=== PATIENT | female | born 1990 | race Caucasian/White ===

== ENCOUNTER 2020-12-20 18:18 | Emergency (ER) | payer OTHER ==
[2020-12-20 18:47] LABS: Bilirubin Negative (Negative); Blood, Urine Large (Negative); Clarity Clear (Clear); Glucose, Urine (Dipstick) Negative (Negative); Ketone, Urine Negative (Negative); Leukocyte Negative (Negative); Nitrite Negative (Negative); Protein, Urine (Dipstick) Negative (Neg-Trace); Urobilinogen 0.2 mg/dL (Less than 2)
[2020-12-20 18:54] LABS: Pregnancy Test - Urine (BHCG) Negative (Negative); Pregu Control Background? CLEAR/WHITE (CLR/WHITE); Pregu Control Bar Appear? YES (CONTROL BAR)
[2020-12-20 18:57] LABS: Squamous Epithelial 0-3 HPF (0-3)
[2020-12-20] MEDS ORDERED: Ondansetron PF 4 MG/2 ML Vial ONE (19:01)
[2020-12-20] MEDS ORDERED: Ketorolac Tromethamine 30 MG/ML VIAL ONE (19:05)
[2020-12-20 19:10] LABS: #Basophils 0.1 thou/uL (0.0-0.2); #Eosinphils 0.2 thou/uL (0.0-0.7); #Monocytes 0.6 thou/uL (0.11-0.59); #Neutrophils 5.6 thou/uL (1.40-6.50); %Basophils 1.1 % (0.0-1.0); %Eosinophils 1.8 % (0.0-10.0); %Lymphocytes 38.1 % (21.0-51.0); %Monocytes 5.5 % (0.0-10.0); %Neutrophils 53.5 % (42.0-75.0); Hemoglobin 13.7 g/dL (12.0-16.0); Mean Corpuscular HGB CONC 34.3 g/dL (32.0-36.0); Mean Corpuscular Hemoglobin 32.3 pg (27.0-31.0); Mean Platelet Volume 7.7 fL (7.4-10.4); Platelet Count 294 thou/uL (130-400); RBC Distribution Width 12.9 % (11.5-14.5); Red Blood Cell (RBC) Count 4.25 mill/uL (4.20-5.40); White Blood Cell (WBC) Count 10.5 thou/uL (4.8-10.8)
[2020-12-20 19:24] LABS: ALT (SGPT) 23 U/L (8-55); AST (SGOT) 17 U/L (5-34); Albumin 4.2 g/dL (3.5-5.0); Alkaline Phosphatase 79 U/L (40-110); Anion Gap 15 mmol/L (10-20); BUN (Urea Nitrogen) 6 mg/dL (7.0-18.7); Bilirubin, Total 0.2 mg/dL (0.2-1.2); Calc. Creatinine Clearance 0 mL/min (70-130); Carbon Dioxide 21 mmol/L (22-29); Chloride 105 mmol/L (98-107); Globulin 3.2 g/dL (2.4-3.5); Glucose 88 mg/dL (70-105); Lipase 14 U/L (8-78); Potassium 4.1 mmol/L (3.5-5.1); Protein, Total 7.4 g/dL (6.0-8.3); Sodium 137 mmol/L (136-145)
--- NOTE | 2020-12-20 19:53 | CT ---
EXAM: ABDOMEN AND PELVIC CT SCAN WITHOUT IV CONTRAST: 12/20/20 HISTORY: Left flank pain radiating to lower abdomen. FINDINGS: 0.3 cm diameter circumscribed subpleural nodule in the right lower lobe. Given its size and appearanc e this nodule should not need any short term follow-up. The liver, gallbladder, pancreas, spleen, adrenal glands are unremarkable. No renal calculus or acute obstruction. Normal appearing appendix. No evidence for large or small bowel obstruction. Lumbar disc disease particularly at L4-L5 and L5-S1. The right ovary appears to be somewhat enlarged measuring 3.3 x 4.5 cm in size. The let ovary is norm al in size. Both ovaries containing circumscribed punctate calcific focus. Uterus appears unremarkabl e. IMPRESSION: No significant acute process in the abdomen or pelvis. No renal calculus or acute obstruction. No solid or cystic renal mass. Evidence for probable enlarged right ovary. Nonemergent follow-up pelvic ultrasound with transabdominal and transvaginal imaging is suggested fo r further assessment. 0.3 cm diameter circumscribed nodule in the right lower lobe. POS: RRE
== END 2020-12-20 20:36 | disposition short-term general hospital (02) ==
LOC: NAV ERS 18:18
DX: N83.8 Other noninflammatory disorders of ovary, fallopian tube and broad ligament (principal); R31.21 Asymptomatic microscopic hematuria; M79.7 Fibromyalgia; F17.210 Nicotine dependence, cigarettes, uncomplicated; Z79.899 Other long term (current) drug therapy
CPT/HCPCS: 74176; 80053; 81003; 81015; 81025; 83605; 83690; 85025; 94760; 96374; 96375; J1885; J2405